=== PATIENT | female | born 1985 | race African-American/Black ===

== ENCOUNTER 2019-04-02 16:25 | Inpatient (IN) | payer OTHER ==
[~2019-04-02] VITALS: Ht 172.7 cm; Wt 71.6 kg
[2019-04-02] MEDS ORDERED: Metoclopramide 10mg/2ml Inj IVP ONE (17:00)
[2019-04-02] MEDS ORDERED: Morphine Sulfate 4mg/ml Inj (IV USE ONLY) IVP ONE (17:00)
--- NOTE | 2019-04-02 17:03 | NUR ---
ED Nurse Note: Blood drawn.
--- NOTE | 2019-04-02 17:08 | Emergency Room Report ---
History of Present Illness General Chief Complaint: Syncope Source: EMS Present Illness HPI 33-year-old female presents ED for evaluation. Patient brought in by EMS. States that while at work today she started to feel lightheaded and fell to the ground. Witnessed syncope per coworkers. Patient presenting with headache and vomiting. Headache is posterior, dull, 9 out of 10, nonradiating. Denies photophobia blurry vision. Denies neck pain. History of Crohn's disease. States she is not taking any medication at this time. States her last flareup was 2 years ago. Denies any abdominal pain. Denies any diarrhea. No other aggravating relieving factors. Denies any other associated symptoms Allergies: Coded Allergies: No Known Allergies (Unverified , 04/02/19) Patient History Past Surgical History: none Pertinent Family History: none Social History: Denies: smoking, alcohol use, drug use Last Menstrual Period: 03/05/19 Now: No Immunizations: UTD Reviewed Nursing Documentation: PMH: Agreed; PSxH: Agreed Nursing Documentation-PMH Past Medical History: No History, Except For Hx Gastrointestinal Problems: Yes - chron diseases Review of Systems All Other Systems: negative except mentioned in HPI Physical Exam Vital Signs Date Time Temp Pulse Resp B/P (MAP) Pulse Ox O2 Delivery O2 Flow Rate FiO2 04/02/19 16:27 97.9 86 16 117/73 (88) 99 Room Air Sp02 EP Interpretation: reviewed, normal General Appearance: no apparent distress, alert, GCS 15, non-toxic Head: normocephalic, atraumatic Eyes: bilateral eye normal inspection, bilateral eye PERRL ENT: hearing grossly normal, normal pharynx, no angioedema, normal voice Neck: full range of motion, supple, no meningismus, supple/symm/no masses Respiratory: chest non-tender, lungs clear, normal breath sounds, speaking full sentences Cardiovascular #1: regular rate, rhythm, no edema Cardiovascular #2: 2+ carotid (R), 2+ carotid (L), 2+ radial (R), 2+ radial (L) , 2+ dorsalis pedis (R), 2+ dorsalis pedis (L) Gastrointestinal: normal bowel sounds, non tender, soft, non-distended, no guarding, no rebound Rectal: deferred Genitourinary: normal inspection, no CVA tenderness Musculoskeletal: back normal, gait/station normal, normal range of motion, non- tender Neurologic: alert, oriented x3, responsive, motor strength/tone normal, sensory intact, speech normal Psychiatric: judgement/insight normal, memory normal, mood/affect normal, no suicidal/homicidal ideation Reflexes: 3+ bicep (R), 3+ bicep (L), 3+ tricep (R), 3+ tricep (L), 3+ knee (R) , 3+ knee (L) Lymphatic: no adenopathy Medical Decision Making Diagnostic Impression: Primary Impression: Syncope Qualified Codes: R55 - Syncope and collapse Additional Impression: New onset seizure ER Course Hospital Course 33 yo F presents with nausea, syncope, headache. Differential diagnosis includes- dehydration, substance abuse, arrythmia Clinical course Patient placed on stretcher. Initial history and physical I ordered labs, IV fluids, mediations, CT head Labs-electrolytes okay, no leukocytosis, hemoglobin/hematocrit stable. UDS + THC, UA negative EKG - NSr, no acute ischemic chanves interpreted by me CT Brain ok States she still feels nauseous and shaky. Coworker at bedside states that patient had a seizure that she witnessed. Saw foaming from the mouth. No incontinence. No tongue trauma. Patient has no prior history of seizure. Given Keppra in ED. Case discussed with Dr. Crowder and he agreed to accept the patient to his service for further care and support. i. I feel this is a highly complex case requiring extensive working including EKG/Rhythm strip, Xray/CT/US, Blood/urine lab work, repeat exams while in ED, and administration of strong opiates/narcotics for pain control, admission to hospital or close patient follow up. Diagnosis - syncope, new onset seizure admitted to telemetry in serious condition Labs Test 04/02/19 17:00 04/02/19 18:15 White Blood Count 9.5 K/UL (4.8-10.8) Red Blood Count 4.36 M/UL (4.20-5.40) Hemoglobin 13.9 G/DL (12.0-16.0) Hematocrit 41.8 % (37.0-47.0) Mean Corpuscular Volume 96 FL (80-99) Mean Corpuscular Hemoglobin 31.8 PG (27.0-31.0) Mean Corpuscular Hemoglobin Concent 33.3 G/DL (32.0-36.0) Red Cell Distribution Width 10.6 % (11.6-14.8) Platelet Count 273 K/UL (150-450) Mean Platelet Volume 6.6 FL (6.5-10.1) Neutrophils (%) (Auto) % (45.0-75.0) Lymphocytes (%) (Auto) % (20.0-45.0) Monocytes (%) (Auto) % (1.0-10.0) Eosinophils (%) (Auto) % (0.0-3.0) Basophils (%) (Auto) % (0.0-2.0) Differential Total Cells Counted 100 Neutrophils % (Manual) 83 % (45-75) Lymphocytes % (Manual) 12 % (20-45) Monocytes % (Manual) 5 % (1-10) Eosinophils % (Manual) 0 % (0-3) Basophils % (Manual) 0 % (0-2) Band Neutrophils 0 % (0-8) Platelet Estimate Adequate Platelet Morphology Normal Red Blood Cell Morphology Normal Sodium Level 140 MMOL/L (136-145) Potassium Level 4.0 MMOL/L (3.5-5.1) Chloride Level 104 MMOL/L (98-107) Carbon Dioxide Level 26 MMOL/L (21-32) Anion Gap 10 mmol/L (5-15) Blood Urea Nitrogen 8 mg/dL (7-18) Creatinine 0.8 MG/DL (0.55-1.30) Estimat Glomerular Filtration Rate > 60 mL/min (>60) Glucose Level 161 MG/DL (74-106) Calcium Level 8.8 MG/DL (8.5-10.1) Total Bilirubin 0.3 MG/DL (0.2-1.0) Aspartate Amino Transf (AST/SGOT) 13 U/L (15-37) Alanine Aminotransferase (ALT/SGPT) 16 U/L (12-78) Alkaline Phosphatase 65 U/L (46-116) Total Protein 7.6 G/DL (6.4-8.2) Albumin 3.9 G/DL (3.4-5.0) Globulin 3.7 g/dL Albumin/Globulin Ratio 1.1 (1.0-2.7) Lipase 127 U/L (73-393) Human Chorionic Gonadotropin, Qual Negative (NEGATIVE) Urine Color Pale yellow Urine Appearance Clear Urine pH 6.5 (4.5-8.0) Urine Specific Malcolm 1.005 (1.005-1.035) Urine Protein Negative (NEGATIVE) Urine Glucose (UA) Negative (NEGATIVE) Urine Ketones Negative (NEGATIVE) Urine Blood Negative (NEGATIVE) Urine Nitrite Negative (NEGATIVE) Urine Bilirubin Negative (NEGATIVE) Urine Urobilinogen Normal MG/DL (0.0-1.0) Urine Leukocyte Esterase Negative (NEGATIVE) Urine HCG, Qualitative Negative (NEGATIVE) Urine Opiates Screen Positive (NEGATIVE) Urine Barbiturates Screen Negative (NEGATIVE) Phencyclidine (PCP) Screen Negative (NEGATIVE) Urine Amphetamines Screen Negative (NEGATIVE) Urine Benzodiazepines Screen Negative (NEGATIVE) Urine Cocaine Screen Negative (NEGATIVE) Urine Marijuana (THC) Screen Positive (NEGATIVE) EKG Diagnostic Results Rate: normal Rhythm: NSR ST Segments: no acute changes ASA given to the pt in ED: No Rhythm Strip Diag. Results EP Interpretation: yes Rhythm: NSR, no PVC's, no ectopy CT/MRI/US Diagnostic Results CT/MRI/US Diagnostic Results : Imaging Test Ordered: CT head Impression Impression: -No acute intracranial abnormality. -Bilateral maxillary sinus findings suggesting probable chronic sinusitis, likely acute on the left. -Otherwise unremarkable study. Last Vital Signs Date Time Temp Pulse Resp B/P (MAP) Pulse Ox O2 Delivery O2 Flow Rate FiO2 04/02/19 16:27 97.9 86 16 117/73 (88) 99 Room Air Status: improved Disposition: ADMITTED INPATIENT Condition: Serious Scripts No Active Prescriptions or Reported Meds Duane Santiago MD Apr 02, 2019 17:08
--- NOTE | 2019-04-02 17:21 | NUR ---
ED Nurse Note: pt sent to CT
[2019-04-02 17:35] VITALS: BP 120/75
--- NOTE | 2019-04-02 17:38 | NUR ---
ED Nurse Note: Called for her labs. Lab states that the Labs will be in the system in 2min
--- NOTE | 2019-04-02 17:41 | Diagnostic Imaging Report ---
Indications: Syncopal episode Technique: Spiral acquisitions obtained through the brain. Angled axial and coronal 5 x 5 mm slices were reconstructed. Total dose length product 1334 mGycm. CTDI vol(s) 60 mGy. Dose reduction achieved using automated exposure control Comparison: None. Findings: No acute intracranial hemorrhage or edema, mass effect, nor midline shift. Normal little-white differentiation. Normal size ventricles and extra axial CSF spaces. Visualized orbits are unremarkable. There is bilateral maxillary sinus mucosal disease. The turbinates are unusually prominent and there is lizy bullosa on the left. The mastoids are clear. The calvarium is intact. Impression: Negative for acute intracranial bleed or mass effect Sinus disease This agrees with the preliminary interpretation provided overnight by [facility] teleradiology service. The CT scanner at [facility] is accredited by the [employer] and the scans are performed using protocols designed to limit radiation exposure to as low as reasonably achievable to attain images of sufficient resolution adequate for diagnostic evaluation.
[2019-04-02 17:58] LABS: ANION GAP 10 mmol/L (5-15); BLOOD UREA NITROGEN 8 mg/dL (7-18); CALCIUM 8.8 MG/DL (8.5-10.1); CARBON DIOXIDE 26 MMOL/L (21-32); CHLORIDE 104 MMOL/L (98-107); CREATININE 0.8 MG/DL (0.55-1.30); HEMATOCRIT 41.8 % (37.0-47.0); HEMOGLOBIN 13.9 G/DL (12.0-16.0); MEAN CORPUSCULAR VOLUME 96 FL (80-99); PLATELET COUNT 273 K/UL (150-450); RED BLOOD COUNT 4.36 M/UL (4.20-5.40); RED CELL DISTRIBUTION WIDTH 10.6 % (11.6-14.8); SODIUM 140 MMOL/L (136-145); WHITE BLOOD COUNT 9.5 K/UL (4.8-10.8)
[2019-04-02 18:02] LABS: ALANINE AMINOTRANSFERASE 16 U/L (12-78); ALBUMIN 3.9 G/DL (3.4-5.0); ALBUMIN/GLOBULIN RATIO 1.1 (1.0-2.7); ALKALINE PHOSPHATASE 65 U/L (46-116); ASPARTATE AMINO TRANSFERASE 13 U/L (15-37); BILIRUBIN,TOTAL 0.3 MG/DL (0.2-1.0)
[2019-04-02 19:09] LABS: APPEARANCE,URINE CLEAR; BILIRUBIN, URINE NEGATIVE (NEGATIVE); COLOR,URINE PALE YELLOW; GLUCOSE, URINE (UA) NEGATIVE (NEGATIVE); KETONES,URINE NEGATIVE (NEGATIVE); LEUKOCYTE ESTERASE ,URINE NEGATIVE (NEGATIVE); NITRITE,URINE NEGATIVE (NEGATIVE); PH,URINE 6.5 (4.5-8.0); PROTEIN,URINE NEGATIVE (NEGATIVE); UROBILINOGEN,URINE NORMAL MG/DL (0.0-1.0)
--- NOTE | 2019-04-02 19:15 | NUR ---
ED Nurse Note: Recieved report from am nurse to resume care, pt in bed awake, alert and oriented x 4, pt on cardiac monitoring, pt here for possible seizure activity with syncopal episode, pt has patent saline lock in left ac, side rails padded and placed on sz precautions, pt family at bedside, pt ahs hx of chrohns disease and has mild abd pain at 7/10 with nausea, will resume care as ordered and continue to closely monitor.
--- NOTE | 2019-04-02 19:20 | NUR ---
HAND-OFF: Report given to RIVER More . Pt stable and alert x4.
[2019-04-02 19:30] VITALS: BP 126/69
[2019-04-02] MEDS ORDERED: levETIRAcetam 1,000mg/NS100ml 100 ML IVPB ONE (19:45)
--- NOTE | 2019-04-02 20:15 | NUR ---
ED Nurse Note: Pt assisted to bathroom, ambulates well with steady gait, denies headache, or dizziness,r emains with mild abd pain, md aware, no cp, no sob, iv site patent, no sz activity noted, pt to be admitted to hospital, will resume care as ordered and continue to closely monitor.
[2019-04-02] MEDS ORDERED: LORazepam Inj 2mg/ml 1ml IV PRN (20:30)
--- NOTE | 2019-04-02 20:45 | NUR ---
ED Nurse Note: Pt medicated for nausea, meds effective, remains with mild pain at 7/10, MD aware, pt has room for admission, attempted report called to RIVER Thorne, informed bed is not ready and giving meds, will wait for return call, pt continues to rest in bed,a wake and alert, no sz activity noted, saline lock intact and patent, no changes or increased distress, will continue to monitor.
[2019-04-02 21:00] VITALS: BP 131/75
[2019-04-02] MEDS: Enoxaparin 40mg Inj SUBQ SCH (21:15)
--- NOTE | 2019-04-02 22:25 | NUR ---
ED Nurse Note: Pt continues to rest quietly in bed, awake and alert, IV site patent, denies cp, sob or any acute chagnes, no sz activity noted, report given to RIVER Thorne on floor unit, pt being taken to floor via gurney with RN and ER-Tech under ACLS guidelines, nad noted during pt transport.
--- NOTE | 2019-04-02 22:40 | NUR ---
NURSE NOTES: rECEIVED PT FROM gale Castillo VIA PHONE. Pt arrived awake, alert, and talkative. Family at bedside. Skin intact. Pt admits to drug use. Bed in lowest position. Call light within reach. Will continue to monitor.
[2019-04-02 22:51] VITALS: BP 118/81
--- NOTE | 2019-04-03 03:00 | History and Physical Report ---
DATE OF ADMISSION: 04/02/2019 REASON FOR ADMISSION: Seizure. HISTORY OF PRESENT ILLNESS: The patient is a 33-year-old female who presented to the emergency room for further evaluation and care after falling to the ground with having a witnessed seizure, which she says her coworkers said it lasted about a minute. There was a prodromal flare where she made some aggravating noises, fell over to the side and had a seizure for one minute. Per her recollection of what her coworkers told her. The patient states she has never had this before. The patient does state she does marijuana on a regular basis by vaping and eating it and also smoking in other routes. However, at this time the patient stated that she had not had some for some days. She denies any nausea, vomiting, or diarrhea. No chest pain or shortness of breath. PAST MEDICAL HISTORY: Crohn disease. ALLERGIES: No known drug allergies. PAST SURGICAL HISTORY: None. FAMILY HISTORY: None. SOCIAL HISTORY: Positive for tobacco, alcohol, and marijuana. REVIEW OF SYSTEMS: NEUROLOGIC: The patient had syncopal and seizure. CARDIOVASCULAR: No current chest pain, palpitations, or angina. PULMONARY: No difficulty breathing, productive cough, or sputum. GASTROINTESTINAL/GENITOURINARY: No change in urinary or bowel habits. No nausea, vomiting, or diarrhea. ENDOCRINOLOGY: No night sweats, fevers, or chills. MUSCULOSKELETAL: The patient is feeling weak, tired, and fatigued. PHYSICAL EXAMINATION: VITAL SIGNS: Blood pressure 126/69, heart rate 76, temperature 98.4, and respiratory rate 16. Pulse oximetry 99% on room air. GENERAL: The patient is awake and alert, not in distress. HEENT: Extraocular muscles intact. No lymphadenopathy noted. CARDIOVASCULAR: S1, S2. No rubs or gallops. PULMONARY: Clear to auscultation bilaterally. No rales, rhonchi, or wheezes. ABDOMEN: Nondistended and nontender. EXTREMITIES: No edema. LABORATORY DATA: Labs dated April 02, 2019 - toxicology screen is positive for marijuana and opioids. Potassium 4, creatinine 0.8, sodium 140. Hemoglobin 13.9, white cell count 9.5, and platelet count 273,000. ASSESSMENT AND PLAN: 1. Seizure. It could be secondary to heavy marijuana use. At this time, Neurology has been consulted. We will defer further management to them. 2. DVT prophylaxis with Lovenox. 3. GI prophylaxis with famotidine. 4. Dehydration. Continue IV fluids. Alf Crowder MD DR: NEVAEH JOB#: [id number] CC:
[2019-04-03 04:55] LABS: ANION GAP 5 mmol/L (5-15); BLOOD UREA NITROGEN 5 mg/dL (7-18); CARBON DIOXIDE 28 MMOL/L (21-32); CHLORIDE 109 MMOL/L (98-107); CREATININE 0.7 MG/DL (0.55-1.30); POTASSIUM 3.3 MMOL/L (3.5-5.1); SODIUM 142 MMOL/L (136-145)
[2019-04-03 08:00] VITALS: BP 120/78
--- NOTE | 2019-04-03 08:02 | NUR ---
HAND-OFF: Report given to RIVER Kunz. Pt stable.
--- NOTE | 2019-04-03 08:12 | NUR ---
NURSE NOTES: Received patient from RIVER Thorne in bed, denies any pain at this time. Patient is AAO X4, able to make needs known. Denies any pain at this time. Bed is in lowest position, brakes engaged for safety. Call light is within reach. Will continue with the plan of care.
--- NOTE | 2019-04-03 08:29 | Nephrology Progress Note ---
Assessment/Plan Assessment/Plan: A/P 1) Seizure- new onset - marijuanna use - DC once cleared by Neuro 2) DVT prophylaxsis with lovenox Subjective Date patient seen: Apr 03, 2019 Time patient seen: 08:28 ROS Limited/Unobtainable: No Allergies: Coded Allergies: No Known Allergies (Unverified , 04/02/19) Subjective Patient in no distress Objective Last 24 Hour Vital Signs Date Time Temp Pulse Resp B/P (MAP) Pulse Ox O2 Delivery O2 Flow Rate FiO2 04/03/19 04:00 57 04/03/19 00:00 62 04/02/19 23:34 Room Air 04/02/19 22:51 68 118/81 (93) 98 04/02/19 22:25 98.4 71 16 131/75 100 Room Air 04/02/19 21:00 98.4 71 16 131/75 100 Room Air 04/02/19 19:30 98.4 76 16 126/69 99 Room Air 04/02/19 17:40 97.9 04/02/19 17:35 98.2 70 16 120/75 99 Room Air 04/02/19 16:27 97.9 86 16 117/73 (88) 99 Room Air Intake and Output 04/02/19 04/03/19 19:00 07:00 Intake Total 1000 ml Balance 1000 ml Intake IV Total 1000 ml # Voids 1 Laboratory Tests 04/02/19 17:00: White Blood Count 9.5, Red Blood Count 4.36, Hemoglobin 13.9, Hematocrit 41.8, Mean Corpuscular Volume 96, Mean Corpuscular Hemoglobin 31.8H, Mean Corpuscular Hemoglobin Concent 33.3, Red Cell Distribution Width 10.6L, Platelet Count 273, Mean Platelet Volume 6.6, Neutrophils (%) (Auto) , Lymphocytes (%) (Auto) , Monocytes (%) (Auto) , Eosinophils (%) (Auto) , Basophils (%) (Auto) , Differential Total Cells Counted 100, Neutrophils % (Manual) 83H, Lymphocytes % (Manual) 12L, Monocytes % (Manual) 5, Eosinophils % (Manual) 0, Basophils % ( Manual) 0, Band Neutrophils 0, Platelet Estimate Adequate, Platelet Morphology Normal, Red Blood Cell Morphology Normal, Sodium Level 140, Potassium Level 4.0 , Chloride Level 104, Carbon Dioxide Level 26, Anion Gap 10, Blood Urea Nitrogen 8, Creatinine 0.8, Estimat Glomerular Filtration Rate > 60, Glucose Level 161H, Calcium Level 8.8, Total Bilirubin 0.3, Aspartate Amino Transf (AST/ SGOT) 13L, Alanine Aminotransferase (ALT/SGPT) 16, Alkaline Phosphatase 65, Total Protein 7.6, Albumin 3.9, Globulin 3.7, Albumin/Globulin Ratio 1.1, Lipase 127, Human Chorionic Gonadotropin, Qual Negative 04/02/19 18:15: Urine Color Pale yellow, Urine Appearance Clear, Urine pH 6.5, Urine Specific [place] 1.005, Urine Protein Negative, Urine Glucose (UA) Negative, Urine Ketones Negative, Urine Blood Negative, Urine Nitrite Negative, Urine Bilirubin Negative, Urine Urobilinogen Normal, Urine Leukocyte Esterase Negative, Urine HCG, Qualitative Negative, Urine Opiates Screen PositiveH, Urine Barbiturates Screen Negative, Phencyclidine (PCP) Screen Negative, Urine Amphetamines Screen Negative, Urine Benzodiazepines Screen Negative, Urine Cocaine Screen Negative, Urine Marijuana (THC) Screen PositiveH 04/03/19 03:50: Sodium Level 142, Potassium Level 3.3L, Chloride Level 109H, Carbon Dioxide Level 28, Anion Gap 5, Blood Urea Nitrogen 5L, Creatinine 0.7, Estimat Glomerular Filtration Rate > 60, Glucose Level 91, Calcium Level 8.0L Height (Feet): 5 Height (Inches): 8.00 Weight (Pounds): 135 General Appearance: no apparent distress, alert EENT: normal ENT inspection Neck: normal alignment, supple Cardiovascular: normal rate, regular rhythm Respiratory/Chest: lungs clear, normal breath sounds Abdomen: non tender, soft Edema: no edema noted Arm (L), no edema noted Arm (R), no edema noted Leg (L), no edema noted Leg (R), no edema noted Pedal (L), no edema noted Pedal (R), no edema noted Generalized Alf Crowder MD Apr 03, 2019 08:29
[2019-04-03 12:00] VITALS: BP 116/82
--- NOTE | 2019-04-03 13:04 | NUR ---
*-* INSURANCE *-* ALL AVAILABLE CLINICALS HAVE BEEN FAXED TO: [facility]#[id number] NO CM ASSIGNED YET #[phone] FAX#[phone] REVIEWS/CLINICALS
--- NOTE | 2019-04-03 14:03 | Cardiology Report ---
APPROVED REPORT EKG Measurement Heart [id number] Normal sinus rhythm Normal ECG
[2019-04-03] MEDS ORDERED: Gadavist 7.5mMol/7.5ml vial IV PRN (15:00)
--- NOTE | 2019-04-03 15:05 | NUR ---
CASE MANAGEMENT:REVIEW 33 YR OLD FEMALE BIBA FROM WORK CC: SYNCOPE. HEADACHE SI: NEW ONSET SEIZURE 97.9 86 16 117/73 99% ON RA GLUCOSE+161 URINE(+) OPIATES AND MARIHUANA IS: IV REGLAN 1L NS BOLUS IV MORPHINE IV KEPPRA CT HEAD : TO TELEMETRY PLAN: MRI BRAIN EEG SEIZURE PRECAUTION
[2019-04-03 16:00] VITALS: BP 122/79
[2019-04-03] MEDS ORDERED: Calcium Gluconate 10% 2 GM in NS 110 ML IVPB ONE (18:00)
--- NOTE | 2019-04-03 19:24 | NUR ---
HAND-OFF: Report given to Jeff HOLMAN.Patient is in stable condition.
--- NOTE | 2019-04-03 19:30 | NUR ---
NURSE NOTES: Received patient from Joaquina HOLMAN. Patient in bed, on room air, no signs of respiratory distress. Padded side rails for seizure precaution. Bed in low position, locked, call light within reach. Patient is alert and oriented x4, no c/o pain.
[2019-04-03 20:00] VITALS: BP 141/92
--- NOTE | 2019-04-03 20:00 | NUR ---
NURSE NOTES: Per day shift RN, only 1st bag of Magnesium infused. Will infuse second bag.
[2019-04-03] MEDS: Enoxaparin 40mg Inj SUBQ SCH (20:34)
[2019-04-04] VITALS: BP 129/79
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
[2019-04-04 04:00] VITALS: BP 119/70
--- NOTE | 2019-04-04 07:14 | NUR ---
NURSE NOTES: Received patient from RIVER Aguilar in bed, denies any pain at this time. Patient is AAO X4, all needs anticipated and met. Denies any pain at this time. Bed is in lowest position, brakes engaged for safety. Call light is within reach. Will continue with the plan of care.
--- NOTE | 2019-04-04 07:14 | NUR ---
NURSE NOTES: Patient asleep in bed, no signs of distress. Bed in low position, locked, call light within reach. Report given to Joaquina HOLMAN.
[2019-04-04 08:00] VITALS: BP 116/78
--- NOTE | 2019-04-04 11:06 | Nephrology Progress Note ---
Assessment/Plan Assessment/Plan: A/P 1) Seizure- new onset. Had episode last night - marijuanna use - w/u underway per Neuro - electrolytes corrected 2) DVT prophylaxsis with lovenox Subjective Date patient seen: Apr 04, 2019 Time patient seen: 11:04 ROS Limited/Unobtainable: No Allergies: Coded Allergies: No Known Allergies (Unverified , 04/02/19) Subjective Patient reported to have sz last night Objective Last 24 Hour Vital Signs Date Time Temp Pulse Resp B/P (MAP) Pulse Ox O2 Delivery O2 Flow Rate FiO2 04/04/19 09:30 61 04/04/19 09:00 Room Air 04/04/19 08:00 98.9 61 18 116/78 (91) 98 04/04/19 04:00 59 04/04/19 04:00 98.6 63 16 119/70 (86) 98 04/04/19 00:00 98.2 65 18 129/79 (96) 99 04/04/19 00:00 67 04/03/19 21:00 Room Air 04/03/19 20:00 67 04/03/19 20:00 98.2 102 18 141/92 (108) 98 04/03/19 16:00 97.9 66 18 122/79 (93) 97 04/03/19 16:00 66 04/03/19 12:00 98.9 66 18 116/82 (93) 98 04/03/19 12:00 66 Intake and Output 04/03/19 04/04/19 19:00 07:00 Intake Total 400 ml Balance 400 ml Intake Oral 400 ml # Voids 2 # Bowel Movements 1 1 Laboratory Tests 04/03/19 15:54: Rapid Plasma Reagin Non reactive, Treponema pallidum Ab (FTA-ABS) [Pending] Height (Feet): 5 Height (Inches): 8.00 Weight (Pounds): 157 General Appearance: no apparent distress, alert EENT: normal ENT inspection Neck: normal alignment, supple Cardiovascular: normal rate, regular rhythm Respiratory/Chest: lungs clear, normal breath sounds Abdomen: non tender, soft Edema: no edema noted Arm (L), no edema noted Arm (R), no edema noted Leg (L), no edema noted Leg (R), no edema noted Pedal (L), no edema noted Pedal (R), no edema noted Generalized Alf Crowder MD Apr 04, 2019 11:05
[2019-04-04 12:00] VITALS: BP 118/81
--- NOTE | 2019-04-04 12:06 | Diagnostic Imaging Report ---
Indication: Seizure Technique: The head was imaged in a 1.5 Lindsey magnet. Sequences obtained include sagittal and axial T1 FLAIR, axial T2 fast spin echo with fat saturation, axial T2 FLAIR, diffusion and ADC map. Gadolinium-enhanced axial and coronal T1 FLAIR obtained also. Comparison: None Findings: The size, contour, and configuration of the sulci, ventricles, and basal cisterns appear normal. Diallo-white differentiation is normal. There is no restricted diffusion. There is no mass effect, midline shift, edema, or hemorrhage. There are no abnormal extra-axial or intra-axial fluid collections. The corpus callosum is unremarkable. The brainstem and cerebellum are unremarkable. The sella is unremarkable. Bone marrow signal within the visualized osseous structures appears age appropriate and unremarkable otherwise. There is a enhancement and prominence of the left nasal turbinate and T2 hyperintense signal in the left maxillary sinus. No abnormal enhancement is identified. Impression: Negative MRI brain with and without contrast. Nasal congestion and left maxillary sinusitis
--- NOTE | 2019-04-04 12:50 | Diagnostic Imaging Report ---
Indication: Left ankle pain and injury Comparison: None Findings: 3 views of the left ankle obtained. Soft tissues are unremarkable. No acute fracture, malalignment, periostitis, or osteochondral defects are identified. Impression: No acute findings
--- NOTE | 2019-04-04 12:51 | Diagnostic Imaging Report ---
Indication: Foot pain Comparison: None Findings: 3 views of the left foot were obtained. No acute fractures, malalignment, erosions or periostitis are identified. Soft tissues are unremarkable. Impression: No acute findings
[2019-04-04 13:14] LABS: ANION GAP 4 mmol/L (5-15); BLOOD UREA NITROGEN 4 mg/dL (7-18); CALCIUM 8.7 MG/DL (8.5-10.1); CARBON DIOXIDE 28 MMOL/L (21-32); CHLORIDE 109 MMOL/L (98-107); CREATININE 0.8 MG/DL (0.55-1.30); POTASSIUM 4.2 MMOL/L (3.5-5.1); SODIUM 141 MMOL/L (136-145)
--- NOTE | 2019-04-04 14:53 | NUR ---
CASE MANAGEMENT: 04/04/19 SI: NEW ONSET SEIZURE HAD SEIZURE EPISODE LAST NIGHT 98.2 68 18 118/81 97% ON RA IS: KEPPRA PO Q12 PEPCID PO QD LOVENOX SQ QHS : TO TELEMETRY PLAN:
[2019-04-04 16:00] VITALS: BP 121/84
--- NOTE | 2019-04-04 16:00 | NUR ---
*-* INSURANCE *-* ALL AVAILABLE CLINICALS HAVE BEEN FAXED TO: [facility] TRACKING#[id number] NO CM ASSIGNED YET #[phone] FAX#[phone] REVIEWS/CLINICALS
--- NOTE | 2019-04-04 19:33 | NUR ---
HAND-OFF: Report given to, RN. Patient is in stable condition.
--- NOTE | 2019-04-04 19:52 | NUR ---
NURSE NOTES: Received pt and report from RIVER Kunz. Observed pt resting in bed and eating dinner with friend/family member at bedside. hospital coder is in placed, IV site intact, asymptomatic, and patent. Bed is in the lowest position and locked, call light within reach. No signs/symptoms of acute distress noted at this time. Will continue plan of care.
[2019-04-04 20:00] VITALS: BP 111/79
[2019-04-04] MEDS: Enoxaparin 40mg Inj SUBQ SCH (21:53)
--- NOTE | 2019-04-04 23:45 | Progress Note ---
DATE: 04/04/2019 SUBJECTIVE: The patient last night had a seizure. There was no actual latent seizure she had maximum things off of her bed. The patient has no recollection of the event. There was no bitten tongue, myalgias, incontinence, headache, or confusion. This morning, she feels well. PHYSICAL EXAMINATION: MENTAL STATUS: Her mental status was intact. She did spell world backwards and forwards. Knows the date is 04/04/2019, it is Tuesday. Language function is normal. Cranial nerves II through XII are within normal limits. MUSCLE EXAMINATION: Muscle bulk and tone are normal. Strength 5/5 proximally and distally without pronator drift. Coordination, wgvyet-ib-udqz, eynl-hb-rady testing, rapid alternating movements are normal. MRI scan of the brain without contrast done last night shows enhancement and prominence of nasal turbinate and maxillary sinus. Her actual brain is normal. Diagnosis is nasal congestion maxillary sinus . The x-ray of the foot reveals no acute findings. The x-ray of the ankle revealed no acute finding. IMPRESSION: It is unclear why this patient had another seizure. I am going to increase her Keppra to 1000 mg p.o. b.i.d. She has not had an EEG . The patient after she is discharged . PLAN: 1. The patient was warned about driving. 2. Increase Keppra to 1000 mg b.i.d. 3. EEG. Greyson Berman MD DR: VI JOB#: [id number] CC:
[2019-04-05] VITALS: BP 120/64
[2019-04-05 04:00] VITALS: BP 117/72
--- NOTE | 2019-04-05 04:05 | NUR ---
NURSE NOTES: Pt is asleep in bed with both eyes closed. No signs/symptoms of acute distress noted at this time. Will continue plan of care.
[2019-04-05 07:41] LABS: ANION GAP 6 mmol/L (5-15); BLOOD UREA NITROGEN 9 mg/dL (7-18); CALCIUM 8.4 MG/DL (8.5-10.1); CARBON DIOXIDE 29 MMOL/L (21-32); CHLORIDE 107 MMOL/L (98-107); CREATININE 0.8 MG/DL (0.55-1.30); POTASSIUM 3.5 MMOL/L (3.5-5.1); SODIUM 142 MMOL/L (136-145)
--- NOTE | 2019-04-05 07:56 | NUR ---
HAND-OFF: Report given to RIVER [place]. Pt is in stable condition. Plan of care endorsed.
[2019-04-05 08:00] VITALS: BP 139/83
--- NOTE | 2019-04-05 08:16 | NUR ---
NURSE NOTES: Patient is alert and oriented. No reports of discomfort. Side rails are padded, side rails are up x2, bed is locked, and call light is within reach. Will continue to monitor.
--- NOTE | 2019-04-05 11:37 | NUR ---
CASE MANAGEMENT: 04/05/19 SI: NEW ONSET SEIZURE HAD SEIZURE EPISODE LAST NIGHT 98.6 70 18 139/83 98% ON RA IS: KEPPRA PO Q12 PEPCID PO QD LOVENOX SQ QHS : TO TELEMETRY PLAN: EEG COMPLETED ~ INTERPRETATION PENDING DISCHARGE PENDING CLEARANCE FROM NEUROLOGIST
[2019-04-05 12:00] VITALS: BP 108/69
--- NOTE | 2019-04-05 13:28 | Nephrology Progress Note ---
Assessment/Plan Assessment/Plan: A/P 1) Seizure- new onset. etiology unclear - marijuanna use - w/u underway per Neuro. CT/MRu neg.EEG results pending - Sangeetha increased - DC today if cleared by Neuro 2) DVT prophylaxsis with lovenox Subjective Date patient seen: Apr 05, 2019 Time patient seen: 13:27 ROS Limited/Unobtainable: No Allergies: Coded Allergies: No Known Allergies (Unverified , 04/02/19) Subjective Patienthad EEG last nite Objective Last 24 Hour Vital Signs Date Time Temp Pulse Resp B/P (MAP) Pulse Ox O2 Delivery O2 Flow Rate FiO2 04/05/19 12:00 98.5 60 18 108/69 (82) 97 04/05/19 08:30 Room Air 04/05/19 08:00 98.6 70 18 139/83 (101) 98 04/05/19 08:00 76 04/05/19 04:00 58 04/05/19 04:00 97.8 57 17 117/72 (87) 98 04/05/19 00:00 98.3 62 17 120/64 (82) 99 04/05/19 00:00 61 04/04/19 21:00 Room Air 04/04/19 20:00 98.9 74 17 111/79 (90) 97 04/04/19 20:00 79 04/04/19 16:00 98.9 69 18 121/84 (96) 98 04/04/19 16:00 69 Intake and Output 04/04/19 04/05/19 19:00 07:00 Intake Total 390 ml Balance 390 ml Intake Oral 390 ml # Voids 1 # Bowel Movements 1 Laboratory Tests 04/05/19 06:50: Sodium Level 142, Potassium Level 3.5, Chloride Level 107, Carbon Dioxide Level 29, Anion Gap 6, Blood Urea Nitrogen 9, Creatinine 0.8, Estimat Glomerular Filtration Rate > 60, Glucose Level 91, Calcium Level 8.4L Height (Feet): 5 Height (Inches): 8.00 Weight (Pounds): 157 General Appearance: no apparent distress, alert EENT: normal ENT inspection Neck: normal alignment, supple Cardiovascular: normal rate, regular rhythm Respiratory/Chest: lungs clear, normal breath sounds Abdomen: non tender, soft Edema: no edema noted Arm (L), no edema noted Arm (R), no edema noted Leg (L), no edema noted Leg (R), no edema noted Pedal (L), no edema noted Pedal (R), no edema noted Generalized Alf Crowder MD Apr 05, 2019 13:28
--- NOTE | 2019-04-05 13:31 | Discharge Instructions ---
Discharge Instructions Discharge Instructions Services at Discharge: day care Diet: regular Resume Normal Activity?: Yes Activity: light activity Follow Up Orders Follow up 1 week with Neurologist Patient has decided to stay with family/friends for 1-2 weeks post DC For Congestive Heart Failure Reminder Report to your physician any weight gain of 5 pounds or more in one week. Alf Crowder MD Apr 05, 2019 13:31
[2019-04-05] MEDS ORDERED: KEPPRA1000 MG ORAL (13:47)
--- NOTE | 2019-04-05 15:40 | NUR ---
NURSE NOTES: Patient discharged Home via private vehicle. Discharge instructions given to patient. Prescription filled at [facility]. IV removed. Patient stable upon discharge.
--- NOTE | 2019-04-06 11:45 | Discharge Summary ---
Discharge Summary Discharge Summary _ DATE OF ADMISSION: 04/02/2019 DATE OF DISCHARGE: 04/05/2019 DISCHARGED BY: Dr. Crowder REASON FOR ADMISSION: 33 years old female with history of chronic disease,, presented to emergency room for evaluation. Patient was brought by EMS. Patient apparently was at work, when she felt lightheaded and fell to the ground. Coworkers witnessed syncopal episode. Patient presented with headache and vomiting . Headache described as dull, 9 out of 10 , nonradiating , located posteriorly. She denied photophobia and blurry vision. She denied neck pain. Patient reported flare of Crohn's disease 2 years ago. Patient was not on any medication at this time. She denied abdominal pain. She denied diarrhea. Coworker at the bedside reported that patient had seizure episode, that she witnessed. She saw foaming from her mouth. No incontinence. No tongue trauma. No prior history of seizure. Upon evaluation vital signs were stable. Laboratory work-up revealed no leukocytosis, hemoglobin 13.9, hematocrit 41.8. Platelet count 273. Stable electrolytes and renal parameters. Glucose 161. Stable LFT and lipase. Urine test was negative. Urinalysis unremarkable. Urine toxicology screen was positive for marijuana and opiates. EKG revealed normal sinus rhythm , no acute ischemic changes. CT of the head revealed no acute intracranial bleeding or mass-effect. Sinus disease noted. In emergency department patient received a loading dose of Keppra in the emergency room and admitted to telemetry floor for further management. CONSULTANTS: neurologist Dr. Berman [facility]RSE: Patient admitted to monitored floor and started on the IV hydration. Seizure precaution maintained. Neurology consulted. DVT and GI prophylaxis provided. MRI of the brain was negative with and without contrast. Nasal congestion and left maxillary sinusitis noted. Patient remained in sinus rhythm on telemetry. Per neurologist , patient had one seizure , cause of which was unclear. He recommended EEG. Patient cannot drive at this time. Patient started on routine Keppra 500 mg twice daily . Neurologist initially recommended to taper it over the next week or 2, since generally no treatment for one seizure necessarily. Patient already had 1 g of Keppra and needed to be gradually taper off Keppra. Calcium and magnesium were corrected. RPR nonreactive. X-ray of the left foot and left ankle revealed no acute findings. Patient had another seizure at night. Patient had no recollection of the event , no bitten tongue, some myalgia, no confusion, but weakness . Per neurologist it was unclear why the patient had another seizure. Keppra was increased to 1000 milligrams twice daily. EEG was completed, results pending at the time of this dictation. Patient was stable for discharge home. Prescription provided. Patient to follow-up with neurologist as outpatient. Patient was warned not to drive. FINAL DIAGNOSES: New onset of seizures Dehydration DISCHARGE MEDICATIONS: See Medication Reconciliation list. DISCHARGE INSTRUCTIONS: Patient was discharged home. Follow up with primary care provider in one week. Follow up with neurologist as outpatient. No driving. I have been assigned to dictate discharge summary for this account. I was not involved in the patient's management. Tracee Haynes NP Apr 06, 2019 11:45
--- NOTE | 2019-04-06 16:08 | NUR ---
*-* INSURANCE *-* DISCHARGE SUMMARY HAS BEEN FAXED TO: [facility] TRACKING#[id number] NO CM ASSIGNED YET #[phone] FAX#[phone] REVIEWS/CLINICALS
== END 2019-04-05 15:02 | disposition home or self-care (01) | DRG 101 ==
LOC: EDBD 16:25 → EMR 17:35 → 2E 19:55 → EDBEDREQ 20:26
DX: R56.9 Unspecified convulsions (principal); K50.90 Crohn's disease, unspecified, without complications; E86.0 Dehydration
CPT/HCPCS: 36415; 70450; 70553; 80048; 80053; 80299; 80307; 81003; 81025; 83690; 83735; 84703; 85007; 85025; 86592; 86780; 93005; 95819; 96361; 96365; 96375; 99285; A9585; J2405; J2765; J8499